=== PATIENT | female | born 1935 | race Caucasian/White ===

== ENCOUNTER 2018-12-08 08:07 | Day surgery (SDC) | payer OTHER, BC ==
[2018-12-08 10:15] VITALS: TEMP 97.9
[2018-12-08 10:32] VITALS: PULSE 67
[2018-12-08 11:03] VITALS: BP 133/62
--- NOTE | 2018-12-09 17:37 | PATH ---
Surgical Pathology Report Patient Name: [facility]. Rec. #: [id number] /Age/Gender: 1935 (Age: 83) / F Account: [id number] Location: ASU-ENDOSCOPY Taken: 12/08/2018 Received: 12/08/2018 Reported: 12/09/2018 Physicians: Pedro Hernandez M.D. Specimen(s) Received A: BX TRANSVERSE COLON POLYP B: RIGHT HEMICOLECTOMY ANASTOMOSIS C: ANASTOMOSIS ULCER D: RECTAL POLYP Clinical History History of colon cancer and positive cologuard Postoperative diagnosis: Colon polyps, anastomotic ulcer, diverticulosis Final Diagnosis A. TRANSVERSE COLON, POLYP, POLYPECTOMY: HYPERPLASTIC POLYP. B. RIGHT HEMICOLECTOMY ANASTOMOSIS, BIOPSY: SMALL BOWEL MUCOSA WITH MODERATE ACUTE INFLAMMATION, SMALL LYMPHOID AGGREGATE, AND FOCAL ULCERATION. COLONIC MUCOSA WITH PIGMENT LADEN MACROPHAGES CONSISTENT WITH MELANOSIS COLI, MILD ARCHITECTURAL DISTORTION, AND MILD INCREASE IN CHRONIC INFLAMMATORY INFILTRATE WITHIN LAMINA PROPRIA. SEE COMMENT. C. ANASTOMOTIC ULCER, BIOPSY: SMALL BOWEL MUCOSA WITH MARKED ACUTE INFLAMMATION, ULCERATION, AND GRANULATION TISSUE FORMATION. SEE COMMENT. D. RECTAL POLYP, BIOPSY: HYPERPLASTIC POLYP. Comment: Part B, PAS special stain is positive in the pigment laden macrophages, while negative for Iron stain; supportive of melanosis coli. Part B & C, Findings are non-specific. Differential diagnosis is broad and includes infection and medication. History of prior colon cancer and anastomosis noted. Suggest clinical/endoscopic correlation. Electronically Signed Melisa Carbone M.D. Gross Description A. Received in formalin, labeled "transverse colon polyp" is a fuentes, irregular portion of soft tissue measuring 0.6 cm. in greatest dimension. The specimen is submitted in toto in one cassette. B. Received in formalin, labeled "right hemicolectomy anastomosis" are 7 fuentes, irregular portions of soft tissue ranging from 0.2-0.3 cm. in greatest dimension. The specimens are submitted in toto in one cassette. C. Received in formalin, labeled "anastomotic ulcer" are 3 fuentes, irregular portions of soft tissue ranging from 0.1-0.5 cm. in greatest dimension. The specimens are submitted in toto in one cassette. D. Received in formalin, labeled "rectal polyp biopsy" are 3 fuentes, irregular portions of soft tissue ranging from 0.1-0.2 cm. in greatest dimension. The specimens are submitted in toto in one cassette. 12/08/201812/08/2018
== END 2018-12-08 11:21 | disposition home or self-care (01) ==
LOC: JASU-ENDO 08:07
PROVIDERS: ATTEND Internal Medicine Gastroenterology
PROC: 0DBB8ZX Excision of Ileum, Via Natural or Artificial Opening Endoscopic, Diagnostic (ICD-10-PCS; 2018-12-08)
PROC: 0DBP8ZX Excision of Rectum, Via Natural or Artificial Opening Endoscopic, Diagnostic (ICD-10-PCS; 2018-12-08)
PROC: 0DBL8ZX Excision of Transverse Colon, Via Natural or Artificial Opening Endoscopic, Diagnostic (ICD-10-PCS; principal; 2018-12-08 09:00)
DX: Z12.11 Encounter for screening for malignant neoplasm of colon (principal); Z85.038 Personal history of other malignant neoplasm of large intestine; D12.3 Benign neoplasm of transverse colon; K62.1 Rectal polyp; K64.8 Other hemorrhoids; K63.3 Ulcer of intestine; Z98.0 Intestinal bypass and anastomosis status
CPT/HCPCS: 88305-TC; 88313-TC